=== PATIENT | male | born 1970 | race Caucasian/White ===

== ENCOUNTER → 2017-10-23 | Outpatient (CLI) | payer BC, OTHER ==
--- NOTE | 2017-10-23 15:24 | RAD ---
Left breast ultrasound, 10/23/2017: History: Left breast nodule A targeted ultrasound exam was performed of the area of clinical concern at the 11:00 location in the left breast. There is a small, predominantly hypoechoic mass at 11:00 location located approximately 11 cm from the nipple. This is a superficial nodule which appears to involve the skin. Its margins are irregular. It measures 9 x 7 x 8 mm. No internal color flow is seen. Bilateral mammograms, 10/23/2017: The breasts are predominantly fatty in nature as would be expected. A BB was placed on the skin surface overlying the palpable left breast nodule in the high upper inner quadrant. The nodule itself is obscured by overlying pectoralis musculature on the mammograms. No other unusual breast densities or calcifications are seen. IMPRESSION: Small superficial nodule in the high upper inner left breast which involves the skin. While this likely represents a skin related lesion such as an epidermal inclusion cyst, a neoplastic etiology such as a breast neoplasm invading the skin cannot be excluded. Surgical consultation is suggested. Mammography is a sensitive method for finding small breast cancers, but it does not detect them all and is not a substitute for careful clinical examination. A negative mammogram does not negate a clinically suspicious finding and should not result in delay in biopsying a clinically suspicious abnormality. "Our facility is accredited by the [employer] Mammography [employer]."
== END | disposition home or self-care (01) ==
LOC: US 13:33
PROVIDERS: ATTEND Nurse Practitioner Family
DX: N63.22 Unspecified lump in the left breast, upper inner quadrant (principal)
CPT/HCPCS: 77066

== ENCOUNTER → 2020-08-18 | Outpatient (CLI) | payer BC, OTHER ==
[2020-08-18 21:53] LABS: BASO % 1 % (0-3); EOS # 0.1 x10^3/uL (0.0-0.7); EOS % 2 % (0-3); HEMATOCRIT 47.8 % (39.0-53.0); HEMOGLOBIN 15.6 g/dL (13.0-17.5); LYMPH # 2.1 x10^3/uL (1.0-4.8); LYMPH % 28 % (24-48); MEAN CORPUSCULAR HEMOGLOBIN 29 pg (25-35); MEAN CORPUSCULAR HGB CONC 33 g/dL (31-37); MEAN CORPUSCULAR VOLUME 89 fL (79-100); MONO # 0.7 x10^3/uL (0.0-1.1); MONO % 9 % (0-9); NEUT # 4.4 x10^3uL (1.8-7.7); NEUT % 61 % (31-73); PLATELET COUNT 281 x10^3/uL (140-400); RED BLOOD COUNT 5.39 x10^6/uL (4.30-5.70); WHITE BLOOD COUNT 7.2 x10^3/uL (4.0-11.0)
[2020-08-18 22:04] LABS: ALBUMIN 3.7 g/dL (3.4-5.0); CALCIUM 8.7 mg/dL (8.5-10.1); CREATININE 0.9 mg/dL (0.7-1.3); GFR 89.7; POTASSIUM 4.5 mmol/L (3.5-5.1); TOTAL BILIRUBIN 0.4 mg/dL (0.2-1.0); TOTAL PROTEIN 7.5 g/dL (6.4-8.2)
[2020-08-19 15:00] LABS: FREE T4 0.82 ng/dL (0.76-1.46); THYROID STIM HORMONE (TSH) 2.764 uIU/mL (0.358-3.740)
== END ==
LOC: LAB 09:51
PROVIDERS: ATTEND Family Medicine
DX: E78.2 Mixed hyperlipidemia (principal); E03.9 Hypothyroidism, unspecified; I10 Essential (primary) hypertension; E78.00 Pure hypercholesterolemia, unspecified
CPT/HCPCS: 36415; 80053; 80061; 84439; 84443; 85025